=== PATIENT | female | born 1965 | race Caucasian/White ===

== ENCOUNTER 2022-03-01 11:27 | Outpatient (CLI) | payer OTHER, SELFPAY ==
--- NOTE | 2022-03-01 11:34 | ECG_ITS ---
Measurements Intervals [place] Rate: 62 P: 27 WA: 163 QRS: 17 QRSD: 89 T: 33 QT: 405 QTc: 412 Interpretive Statements SINUS RHYTHM NORMAL ECG NO PREVIOUS ECG AVAILABLE FOR COMPARISON Electronically Signed On 03-01-2022 18:05:56 CDT by Quintin Farnsworth M.D.
[2022-03-01 12:02] LABS: Anion Gap 5 mmol/L (8-16); Blood Urea Nitrogen 13 mg/dL (7-17); Calcium 8.8 mg/dL (8.4-10.2); Carbon Dioxide 30 mmol/L (22-30); Chloride 103 mmol/L (98-107); Estimated Glomerular Filt Rate > 60; Glucose 89 mg/dL (65-110); Sodium 138 mmol/L (137-145)
== END 2022-03-01 11:28 | disposition home or self-care (01) ==
LOC: ANHSURGERY 11:29
PROVIDERS: Anesthesiology; PCP Family Medicine; Visit Provider Surgery Plastic and Reconstructive Surgery
DX: E78.5 Hyperlipidemia, unspecified (principal); I10 Essential (primary) hypertension; Z79.899 Other long term (current) drug therapy; Z01.818 Encounter for other preprocedural examination
CPT/HCPCS: 36415; 80048; 93005

== ENCOUNTER 2022-03-07 01:01 | Day surgery (SDC) | payer OTHER, SELFPAY ==
[2022-02-27 10:11] VITALS: BMI 34.9
--- NOTE | 2022-02-27 10:21 | PC.NURSE ---
Report to the Outpatient Waiting Room, entrance under the green pavilion located off [facility], at time 6:00 on date 03/07/22. OR Time: 7:30. - You and your visitor will be asked a series of questions to screen for COVID 19 for your protection. - A mask is required within the hospital. One visitor will be allowed to accompany the patient into the hospital. Patients visitor will be instructed to remain with patient at all times or leave the building. We will allow the visitor to come back to the postoperative area when patient is ready. Preoperative COVID Testing Requirements: No COVID Test needed if: (proof is required; if not received patient will have Rapid Test prior to entry) - Patient has received COVID Vaccine at least 14 days prior to procedure date or - Patient has positive COVID test result within last 90 days of surgery date. COVID Test needed if above criteria is not met Patients may have clear liquids (water, carbonated beverages, clear teas, apple juice) until 3 hours prior to surgery with a maximum of 20 ounces. - No food from midnight until time of surgery Take the following medications with a SIP of water the morning of surgery: NONE Medications to discontinue per physician: N/A Date to take last dose: N/A Please no make-up, nail sao tomean, hairspray, perfume, deodorant, or body powder the day of surgery. No jewelry (including any body piercings) or valuables the day of surgery, leave them at home. Please take a shower or bath the night before, or the morning of, surgery with an antibacterial soap. Wear comfortable, loose fitting clothing. - Jewelry must be removed prior to entering the operating room. Rings and piercings that are not removed may be cut off. - The hospital will not accept responsibility for valuables. - Please leave all valuables, including medications, at home the day of surgery. If you are going home after surgery, a licensed refuse driver must drive you home. - NO public transportation without another adult. - We recommend that an adult stay with you for 24 hours following discharge. - We also recommend that you do not drive, make important decision, drink alcoholic beverages, or take any drugs that were not prescribed by your health care provider for at least 24 hours after your discharge time. Follow any additional instructions given to you from your surgeon. Telephone instructions given to MARLENE BURGER and asked if any additional questions and then verbalized understanding. Patient advised to call surgeon office or pre surgery nurse liaison [phone] if any additional questions.
[2022-03-07] VITALS (8 sets, daily range): BP systolic 112–148; BP diastolic 60–73; PULSE 62–88; RESP 12–18; TEMP 36–36.8; O2SAT 96–100
--- NOTE | 2022-03-07 06:54 | P.PNAN_ITS ---
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 Patient Data Age: 56 Gender: F Height: 1.65 m Weight: 95.25 kg Allergies Allergy/AdvReac Type Severity Reaction Status Date / Time doxycycline AdvReac Mild RASH Verified 03/07/22 07:09 Sulfa (Sulfonamide AdvReac Mild RASH Verified 03/07/22 07:09 Antibiotics) Home Medications Medication Instructions Recorded Confirmed Type docusate sodium 100 mg capsule 100 mg PO BID #14 cap 02/20/22 02/27/22 Rx ondansetron HCl 4 mg tablet 4 mg PO Q6H PRN #30 tablet 02/20/22 02/27/22 Rx carisoprodol 350 mg tablet 350 mg PO TID PRN #21 tablet 02/22/22 02/27/22 Rx oxycodone-acetaminophen 5 mg-325 1 tablet PO Q6H PRN #30 tablet 02/22/22 02/27/22 Rx mg tablet fluoxetine 20 mg PO HS 02/27/22 02/27/22 History gabapentin 300 mg PO HS 02/27/22 02/27/22 History lisinopril 10 mg PO DAILY 02/27/22 02/27/22 History omeprazole 20 mg PO DAILY 02/27/22 02/27/22 History simvastatin 20 mg PO HS 02/27/22 02/27/22 History triamterene-hydrochlorothiazid 1 cap PO DAILY 02/27/22 02/27/22 History Patient hx anesthesia problems: none Family hx anesthesia problems: none Results Review: All pre-operative results and documents have been reviewed as part of the pre-operative evaluation. [facility] Past Medical History Medical History (Updated 03/07/22 @ 06:59 by Dominguez Olguin DO) History of breast cancer Hyperlipidemia Hypertension Surgical History Surgical History History of mastectomy Social History Social History Smoking status: Never smoker Alcohol intake: never Substance use: never Substance use type: does not use Living arrangements: with family Additional living arrangements comments: DAUGHTER Spiritual care concerns: No Anes - Eval Final PreProcedure Day of Procedure 03/07/22 06:54 Patient weight: obese Heart: regular rate and rhythm Lungs: clear to auscultation and normal air movement Airway: Mallampati scale class II Neurological: alert and oriented Last oral intake: >/= 8 hours ASA classification: III Emergent: no Anesthetic plan: proceed Anesthesia type and monitoring: general LMA and standard monitoring Results Review: All pre-operative results and documents have been reviewed as part of the pre-operative evaluation. Informed Consent: The patient's anesthetic plan and its attendant risks and benefits were discussed with the patient/family/POA. Questions were solicited and answers provided to the satisfaction of the patient/family/POA.
[2022-03-07] MEDS: LACTATED RINGERS 1,000 ML 30 ML IV CONT ×2 (06:55→08:46)
--- NOTE | 2022-03-07 07:03 | WPDHPUPDATE1 ---
History and Physical Update Update Date/Time: 03/07/22 07:03 History and Physical has been reviewed, including an updated exam of the patient. There are NO changes in the patient's condition. Risks, benefits, and alternatives have been discussed and questions answered. Patient agrees to proceed with procedure.
--- NOTE | 2022-03-07 07:03 | W.PM.PROC2 ---
Procedure Note - Detailed Date of Procedure 03/07/22 Pre-op Diagnosis Bilateral acquired breast deformity History of bilateral breast reconstruction Ruptured right breast implant Post-op Diagnosis Same Procedure Performed 1. Bilateral breast implant exchange (right ruptured, left intact) 2. Bilateral capsulotomy 3. Left capsulorraphy Surgeon Real Price MD Anesthesia General Findings Previous implants Natrelle smooth high profile Right 750 cc filled to 800 Left 650cc filled to 700 New implants Natrelle Saline Implants Right 800cc filled to 850cc REF# [id number] Left 700cc filled to 750cc REF# [id number] Description of Procedure Previously and again today the risks, benefits, alternatives were discussed in extensive detail. I want her to be very realistic about the risks involved as well as expectations. She would like to be slightly wider on her base diameter as well as volume. She understands the limitations of her options however. All questions were answered to her satisfaction today. She voiced a clear understanding. Consent obtained. She was taken to the operating room placed supine on the operating room table. Anesthesia was provided by anesthesiology and prepped and draped in a standard sterile fashion. Surgical time-out was taken. 1% lidocaine and 0.25% Marcaine with epinephrine was used to provide a field block. A 15 blade used to make an incision through the previous incisions laterally and dissection was continued down until the implants were identified. The implants removed bilateral. I copiously irrigated with 3 L of saline solution on TUR tubing. Capsulotomy was performed as necessary and left lateral popcorn capsulorraphy was completed. A copious irrigated with Betadine antibiotic solution. The implant was prepared on the back table and all air removed. Was introduced into the pocket and filled using a fill kit to the volumes as above. The was closed using 2-0 Vicryl followed by 3-0 Stratafix in a running subcuticular 4-0 Monocryl. Final closure was tissue glue and a surgical bra. Patient was woken taken the PACU without difficulty. All instrument sponge counts were correct at the end of the case. Estimated Blood Loss 20 Drains No Packing No Pathology None sent Complications No immediate complications Condition Stable Disposition PACU
[2022-03-07] MEDS: LIDO 1%/EPINEPHRINE 1:100,000 50 ML VIAL 30 ML INFILTRATE (07:28)
[2022-03-07] MEDS: ceFAZolin 2 GM/D5W 50 ML 2 GM/50 ML BAG IVPB (07:28)
[2022-03-07] MEDS: BUPIVACAINE HCL 0.25% PF 30 ML VIAL INFILTRATE (07:28)
[2022-03-07] MEDS: NACL 0.9% IRRIG POUR BOTTLE 900 ML, GENTAMICIN SULFATE INJ 160 MG, ceFAZolin 2 GM, POVI... IRRIGATION (07:28)
[2022-03-07] MEDS: TRANEXAMIC ACID 1,000MG/ISO100 1,000 MG/100 ML BAG 200 MG IVPB (07:36)
[2022-03-07] MEDS: fentaNYL CITRATE INJ (*CRX) 100 MCG/2 ML VIAL 25 MCG IV PUSH ×2 (09:40→09:42)
[2022-03-07] MEDS: oxyCODONE HCL (*CRX) 5 MG TAB IR PO (10:22)
== END 2022-03-07 10:56 | disposition home or self-care (01) ==
PROVIDERS: PCP Family Medicine; Visit Provider Surgery Plastic and Reconstructive Surgery
PROC: (CPT 19380; principal; 2022-03-07 07:30)
DX: T85.43XA Leakage of breast prosthesis and implant, initial encounter (principal); N64.89 Other specified disorders of breast; Z85.3 Personal history of malignant neoplasm of breast; Z90.13 Acquired absence of bilateral breasts and nipples; Y83.8 Other surgical procedures as the cause of abnormal reaction of the patient, or of later complication, without mention of misadventure at the time of the procedure; I10 Essential (primary) hypertension; E78.5 Hyperlipidemia, unspecified; E66.9 Obesity, unspecified; Z68.34 Body mass index [BMI] 34.0-34.9, adult
CPT/HCPCS: 19380; 36415; 80048; 93005; A9270; C1789; J0690; J1100; J1170; J1580; J2250; J2405; J2704; J3010; J7030; J7120

== ENCOUNTER → 2022-09-29 14:00 | Outpatient (CLI) | payer OTHER, SELFPAY ==
--- NOTE | ~2022-09-29 | DEXA_ITS ---
Bone Density Report Name: MARLENE BURGER Age: 56 Sex: Female Ethnicity: White Date of : 1965 Indication: postmenopausal; screening for osteoporosis; height loss; hysterectomy; Referring Provider: Dorina Zarate Study: Bone densitometry was performed. Exam Date: September 29, 2022 Accession number: [id number] Bone Density: Region BMD T-score Z-score Classification AP Spine (L1-L4) 1.291 2.2 3.4 Normal Femoral Neck (Left) 0.986 1.2 2.4 Normal Total Hip (Left) 1.205 2.2 2.9 Normal Femoral Neck (Right) 1.014 1.5 2.6 Normal Total Hip (Right) 1.211 2.2 3.0 Normal Total Hip Mean 1.208 2.2 3.0 Normal World Health Organization criteria for BMD impression classify patients as: Normal (T-score at or above -1.0), Osteopenia (T-score between -1.0 and -2.5), or Osteoporosis (T-score at or below -2.5). 10-year Fracture Risk: FRAX not reported because: All T-scores for Spine Total, Hip Total, Femoral Neck at or above -1.0 Clinical Information Provided by Patient: Has the following medical conditions: Hysterectomy Patient maximum height was 65 Menopause Age: 52 No regular weight bearing exercise Does not regularly consume dairy products Drinks caffeinated beverages Onset of menses at age 13 Number of children 1 Impression: The patient has normal bone mass. Discussion: LOW RISK OF FRACTURE; BONE DENSITY IS WELL ABOVE THE MINIMUM DESIRABLE LEVEL AND ABOVE AVERAGE FOR AGE AND SEX AT ALL SKELETAL SITES TESTED. This person's bone density is above expected limits for age and sex. This is rarely clinically significant, but should be pursued if there are significant musculoskeletal complaints. The patient should follow a healthful lifestyle (good nutrition with adequate calcium and vitamin D, and appropriate weight-bearing exercise). Follow-Up: Consider repeating this study in 5 years or sooner if there is some new clinical indication. Reported by: FABRIZIO on 09/29/2022 2:34:00 PM. Reviewed, dictated and finalized at location [facility]
== END ==
PROVIDERS: PCP Family Medicine; Visit Provider Advanced Practice Midwife
DX: Z78.0 Asymptomatic menopausal state (principal)
CPT/HCPCS: 77080